=== PATIENT | male | born 2000 | race Two or more races ===

== ENCOUNTER 2021-11-18 07:55 | Emergency (ER) | payer MEDICAID, OTHER ==
[~2021-11-18] VITALS: Ht 190.5 cm; Wt 75.0 kg
[2021-11-18 08:13] VITALS: BP 120/78
[2021-11-18] MEDS ORDERED: LORazepam 0.5 MG TAB PO ONE (08:30)
== END 2021-11-18 10:03 | disposition left against medical advice (07) ==
LOC: ER 07:55 → EDBD 07:55 → ER 10:03
DX: F31.9 Bipolar disorder, unspecified (principal); F20.9 Schizophrenia, unspecified; Z53.29 Procedure and treatment not carried out because of patient's decision for other reasons
CPT/HCPCS: 36415; 80320

== ENCOUNTER 2024-03-31 01:54 | Emergency (ER) | payer MEDICAID ==
[~2024-03-31] VITALS: Ht 188 cm; Wt 76.7 kg
[2024-03-31 02:01] VITALS: BP 160/98; PULSE 90; RESP 16; O2SAT 97
--- NOTE | 2024-03-31 02:10 | ED.PDOC ---
Musculoskeletal HPI Comments 23 year old male brought in by EMS presents to the ED with a chief complaint of RT 2nd toe pain onset 3 weeks. Patient states he hit his RT 2nd toe on a metal table about 3 weeks ago, has been seen at different facilities, had an x-ray yesterday,was told he has a fracture and was prescribed medication. Patient states he has not been able to pickup medication because pharmacy is in [place]. He noticed pain worsen today with walking. He is also experiencing shortness of breath, congestion, cough since last night. PMHx of schizophrenia. Denies LOC, dizziness, chest pain, nausea, vomiting, diarrhea, numbness/tingling of extremities. No other symptoms or modifying factors present at this time. Chief Complaint: Lower Extremity Time Seen by MD: 02:02 Reviewed Notes: Medications, Allergies Allergies: Coded Allergies: NO KNOWN ALLERGIES (Unverified , 11/18/21) Information Source: Patient, Emergency Med Personnel Mode of Arrival: EMS Location: Right Extremity Location: Toe 2 Timing: Weeks Prehospital treatment: None Severity: Moderate Able to Move Extremity: Yes Bear Weight: Limited Pain: Moderate Mechanism: Jam Onset of Symptoms: After Trauma Symptoms: Swelling, Pain DVT Risk Factors: NONE Vital Signs Vital Signs Date Time Temp Pulse Resp B/P (MAP) Pulse Ox O2 Delivery O2 Flow Rate FiO2 03/31/24 02:01 98.2 90 16 160/98 (118) 97 Physical Exam General: Awake, alert and oriented. No acute distress. Skin: Skin in warm, dry and intact without rashes or lesions. HEENT: The head is normocephalic and atraumatic. Conjunctivae are clear without exudates or hemorrhage. Sclera is non-icteric. Neck: Normal range of motion. No JVD. Cardiac: Regular rate Respiratory: No signs of respiratory distress. No Stridor. Extremities: Right 2nd toe with approximately 2 cm hematoma at the tip of the toe. Normal range of motion. No deformity, erythema, laceration. Skin is warm, normal capillary refill, normal DP pulse. Neurological: The patient is awake, alert and oriented to person, place, and time with normal speech. Speech is clear. There is no facial asymmetry. Psychiatric: Appropriate mood and affect. Good judgement and insight. No visual or auditory hallucinations. No suicidal or homicidal ideation. Review of Systems: As stated in HPI Past Medical History PAST MEDICAL HISTORY: Schizophrenia Surgical History: Denies all surgeries Family History Family History: Reviewed,noncontributory to illness Social History Smoker: Unknown Alcohol: Unknown Drugs: Unknown Lives In: Home Differential Diagnosis EXT Differential Diagnosis: Cellulitis, Fracture, Sprain X-Ray, Labs, Meds, VS Vital Signs Date Time Temp Pulse Resp B/P (MAP) Pulse Ox O2 Delivery O2 Flow Rate FiO2 03/31/24 02:01 98.2 90 16 160/98 (118) [address] [place] [id number] Ph: [phone] DIAGNOSTIC IMAGING Diagnostic Imaging Report : [id number] Signed PATIENT: ANGELINA LANGFORD ACCT: [id number] UNIT: [id number] : 2000 LOC: ER ROOM / BED: / AGE / SEX: 23 / M ADM STATUS: REG ER SERVICE 3 ORDERING PHYSICIAN: ESME YAP MD PROCEDURE(s): LFOT2 - L FOOT 2 VIEW XRAY REASON: Right second toe pain ORDER NUMBER(s): [id number], ACCESSION NUMBER(s): [id number] EXAM: XY L FOOT 2 VIEW XRAY CLINICAL INDICATION: Right second toe pain TECHNIQUE: XY L FOOT 2 VIEW XRAY Comparison: None FINDINGS/IMPRESSION: There is no evidence of acute fracture or dislocation. The visualized joint space is well maintained. The alignment is anatomical. There is no radiopaque foreign body. ATED BY: OMI LOZANO MD DICTATED DATE/TIME: 03/31/24358 SIGNED BY: OMI LOZANO MD SIGNED DATE/TIME: 03/31/24358 CC: Time of 1ST Reevaluation: 02:32 Reevaluation 1ST: Unchanged Patient Education/Counseling: Diagnosis, Treatment, Prognosis Family Education/Counseling: No Family Present Additional Information The following tests were ordered, and results were reviewed by me: XY L FOOT 2 VIEW Additional Information was gathered from interviewing the following independent historians: EMS I reviewed and agreed with the following test results read by other providers: XY L FOOT 2 VIEW I discussed treatment and results with medical personnel and patient Departure 1 Departure Time of Disposition: 04:32 Impression: Primary Impression: Toe pain Disposition: 01 HOME / SELF CARE / HOMELESS Condition: Stable Additional Instructions: ED DISCHARGE INSTRUCTIONS Instructions: Please read all instructions provided in this packet carefully. Take Tylenol or ibuprofen as needed for pain. Wear sneakers/closed toe shoes for walking. Although you have been discharged from the Emergency Department, this does not mean that you have a "clean bill of health". No definitive diagnosis for your symptoms has been made today. It is possible that you are in the process of developing a serious illness. This is why you must return to the ED without fail if any new or worsening symptoms (especially if your symptoms include chest pain, trouble breathing, abdominal pain, fever, headache, confusion, trouble seeing, or trouble walking) It is also very important that you see a primary care doctor within the next 3-5 days to follow up. If you are unable to get an appointment, return to the ED for re-evaluation. Critical Care Note Critical Care Time?: No Stability Stability form required: No I personally scribed for ESME YAP MD ([email or web address]) on 03/31/24 at 02:10. Electronically submitted by Alicia Nguyen ([email or web address]). I personally scribed for ESME YAP MD ([email or web address]) on 03/31/24 at 03:03. Electronically submitted by Alicia Nguyen ([email or web address]). I personally scribed for ESME YAP MD ([email or web address]) on 03/31/24 at 04:15. Electronically submitted by Alicia Nguyen ([email or web address]). ESME YAP MD Mar 31, 2024 02:10
[2024-03-31] MEDS ORDERED: IBUPROFEN 600 MG TAB PO ONE (02:15)
[2024-03-31] MEDS ORDERED: ACETAMINOPHEN 325 MG TAB PO ONE (02:15)
--- NOTE | 2024-03-31 04:01 | DVH ---
EXAM: XY L FOOT 2 VIEW XRAY CLINICAL INDICATION: Right second toe pain TECHNIQUE: XY L FOOT 2 VIEW XRAY Comparison: None FINDINGS/IMPRESSION: There is no evidence of acute fracture or dislocation. The visualized joint space is well maintained. The alignment is anatomical. There is no radiopaque foreign body.
== END 2024-03-31 08:20 | disposition left against medical advice (07) ==
LOC: EDBD 01:54 → ER 01:54
DX: S90.122A Contusion of left lesser toe(s) without damage to nail, initial encounter (principal); W22.8XXA Striking against or struck by other objects, initial encounter; Y93.89 Activity, other specified; Y92.89 Other specified places as the place of occurrence of the external cause; Y99.8 Other external cause status
CPT/HCPCS: 73620